=== PATIENT | male | born 1955 | race Caucasian/White ===

== ENCOUNTER 2025-10-07 14:38 | Inpatient (IN) | payer MEDICARE ==
[~2025-10-07] VITALS: Ht 182.9 cm; Wt 70.8 kg
[2025-10-07] MEDS: IV NS 0.9% 1,000 ML BAG IV ONE (15:00)
[2025-10-07] MEDS: CEFEPIME 1 GM in IV D5W 50 ML IV ONE (15:00)
[2025-10-07] MEDS ORDERED: DOCU-141 PO (15:08)
[2025-10-07] MEDS ORDERED: TAMS-12 PO (15:08)
[2025-10-07] MEDS ORDERED: MAGN400O6 PO (15:08)
[2025-10-07] MEDS ORDERED: ATOR40TA PO (15:08)
[2025-10-07] MEDS ORDERED: ACET325T53 PO (15:08)
[2025-10-07] MEDS ORDERED: ASPI-1420 PO (15:08)
[2025-10-07] MEDS ORDERED: MELA5TAB PO (15:09)
[2025-10-07 15:10] LABS: PLATELET COUNT (AUTO) 267 K/uL (150-450); RED BLOOD CELL COUNT(AUTO) 4.99 MIL/uL (4.5-6.0); RED CELL DISTRIBUTION WIDTH 13.9 % (11.5-15.0); WHITE BLOOD COUNT (AUTO) 11.2 K/uL (4.3-11.0)
[2025-10-07 15:19] LABS: CALCIUM, SERUM 9.6 mg/dL (8.5-10.1); CREATININE 0.9 mg/dL (0.6-1.3); SODIUM SERUM 136 mmol/L (136-145); UREA NITROGEN, BLOOD 12 mg/dL (7-18)
[2025-10-07 15:24] LABS: INR 1.04 (0.91-1.10)
[2025-10-07 15:25] LABS: ASPARTATE AMINOTRANSFERASE 22 U/L (15-37); TOTAL PROTEIN, SERUM 7.8 g/dL (6.4-8.2)
[2025-10-07 15:27] LABS: LACTIC ACID 1.2 mmol/L (0.4-2.0)
[2025-10-07] MEDS ORDERED: ONDANSETRON HCL/PF 4 MG/2 ML VIAL IVP PRN (17:00)
[2025-10-07] MEDS ORDERED: ACETAMINOPHEN 325 MG TABLET PO PRN (17:00)
[2025-10-07] MEDS ORDERED: MAG HYDROX/AL HYDROX/SIMETH 30 ML UDC PO PRN (17:00)
[2025-10-07 18:07] LABS: APPEARANCE,URINE CLEAR (CLEAR); BLOOD, URINE NEGATIVE Ery/uL (NEGATIVE); LEUKOCYTE ESTERASE ,URINE NEGATIVE (NEGATIVE); NITRITE, URINE NEGATIVE (NEGATIVE); UGLUCOSE NEGATIVE (NEGATIVE)
[2025-10-07 18:21] LABS: ADD URINE CULTURE NO
[2025-10-07 18:22] LABS: SQUAMOUS EPITHELIAL CELL,UR 0-2 /HPF (None Seen); URINE AMORPHOUS URATE Moderate /HPF (None Seen)
[2025-10-07] MEDS: DOCUSATE SODIUM 100 MG CAPSULE PO SCH (18:30)
[2025-10-07] MEDS: ENOXAPARIN SODIUM 40 MG/0.4 ML DISP.SYRIN SQ SCH (18:31)
[2025-10-07 20:00] VITALS: BP 115/63; TEMP 97.9; O2SAT 96
[2025-10-07] MEDS: IV NS 0.9% 1,000 ML IV PRN (22:41)
[2025-10-08] MEDS: CEFEPIME 1 GM in IV D5W 50 ML IV SCH (02:15)
[2025-10-08 07:00] VITALS: BP 124/70; TEMP 98.4; O2SAT 99
[2025-10-08 07:25] LABS: PLATELET COUNT (AUTO) 221 K/uL (150-450); RED BLOOD CELL COUNT(AUTO) 4.47 MIL/uL (4.5-6.0); RED CELL DISTRIBUTION WIDTH 14.1 % (11.5-15.0); WHITE BLOOD COUNT (AUTO) 6.7 K/uL (4.3-11.0)
[2025-10-08 08:02] LABS: CALCIUM, SERUM 8.8 mg/dL (8.5-10.1); CREATININE 0.6 mg/dL (0.6-1.3); PHOSPHORUS 3.2 mg/dL (2.5-4.9); SODIUM SERUM 142.0 mmol/L (136-145); UREA NITROGEN, BLOOD 7.0 mg/dL (7-18)
[2025-10-08] MEDS: ATORVASTATIN 40 MG TABLET PO SCH (09:43)
[2025-10-08] MEDS: ASPIRIN EC 81 MG TABLET.DR PO SCH (09:43)
[2025-10-08] MEDS: TAMSULOSIN 0.4 MG CAP.SR.24H PO SCH (09:43)
[2025-10-08 15:00] VITALS: BP 110/80; TEMP 97.3; O2SAT 97
[2025-10-08 20:00] VITALS: BP 112/69; TEMP 97.8; O2SAT 97
[2025-10-09 07:00] VITALS: BP 122/73; TEMP 98.1; O2SAT 98
[2025-10-09 07:50] LABS: PLATELET COUNT (AUTO) 218 K/uL (150-450); RED BLOOD CELL COUNT(AUTO) 4.41 MIL/uL (4.5-6.0); RED CELL DISTRIBUTION WIDTH 14.1 % (11.5-15.0); WHITE BLOOD COUNT (AUTO) 6.2 K/uL (4.3-11.0)
[2025-10-09 08:17] LABS: CALCIUM, SERUM 8.7 mg/dL (8.5-10.1); CREATININE 0.6 mg/dL (0.6-1.3); PHOSPHORUS 3.3 mg/dL (2.5-4.9); SODIUM SERUM 139.0 mmol/L (136-145); UREA NITROGEN, BLOOD 6.0 mg/dL (7-18)
[2025-10-09 15:00] VITALS: BP 148/90; TEMP 97.9; O2SAT 97
[2025-10-09 20:00] VITALS: BP 106/58; TEMP 97.8; O2SAT 96
[2025-10-10 06:55] LABS: PLATELET COUNT (AUTO) 137 K/uL (150-450); RED BLOOD CELL COUNT(AUTO) 4.40 MIL/uL (4.5-6.0); RED CELL DISTRIBUTION WIDTH 14.9 % (11.5-15.0); WHITE BLOOD COUNT (AUTO) 7.4 K/uL (4.3-11.0)
[2025-10-10 07:12] LABS: CALCIUM, SERUM 8.9 mg/dL (8.5-10.1); CREATININE 0.7 mg/dL (0.6-1.3); PHOSPHORUS 3.5 mg/dL (2.5-4.9); SODIUM SERUM 141.0 mmol/L (136-145); UREA NITROGEN, BLOOD 7.0 mg/dL (7-18)
[2025-10-10 08:52] VITALS: BP 113/72; TEMP 97.9; O2SAT 97
== END 2025-10-10 15:20 | DRG 641 ==
LOC: ER 14:40 → TELE 16:53 → MED 17:49
PROVIDERS: ADMIT Nurse Practitioner Acute Care; ATTEND Nurse Practitioner Acute Care
DX: E86.0 Dehydration (principal); R62.7 Adult failure to thrive; I69.320 Aphasia following cerebral infarction; I25.10 Atherosclerotic heart disease of native coronary artery without angina pectoris; I95.9 Hypotension, unspecified; D72.829 Elevated white blood cell count, unspecified; I69.398 Other sequelae of cerebral infarction; Z68.21 Body mass index [BMI] 21.0-21.9, adult
CPT/HCPCS: 36415; 71045-TC; 80048-TC; 80076-TC; 81001; 83605-TC; 83735-TC; 84100-TC; 84484-TC; 85025-TC; 85730-TC; 87040-TC; 87086-TC; 97110-TC; 97116-TC; 97530-TC; A4223; G0378; J0692; J1650; J7030; J7050; J7060